=== PATIENT | male | born 1945 | race Caucasian/White ===

== ENCOUNTER 2016-10-18 12:30 | Inpatient (IN) ==
--- NOTE | 2016-10-18 12:41 | Family Practice Progress Note ---
Family Practice - PN: Subj Interval history: pt admitted for Myasthenia Gravis Exacerbation, has h/o hypertension, diabeties, COPD,hyperlipidemia,hypothyroidism, PCP: Outside, brand sales consultant on case: Dr. Chance, neurologist. Patient seen and examined on the fifth floor, Is sitting up in the bed, patient is feeling better than yesterday, ambulating well, his speech has improved, is able to swallow his saliva, n.p.o. is on IV fluids, IV Solu-Medrol, tolerating well No fever, nausea, shortness of breath, chest pain, new weakness noted by the patient, No overnight events reported by the nurse. Exam (Progress Note) - Constitutional Vitals: Vitals from today temperature 97.5, pulse rate 66, blood pressure 139/89, 153/67 , pulse ox ranging from 93% to 98 at room air. Exam: GENERAL APPEARANCE: alert and oriented, pleasant, in no acute distress,elderly male patient,. HEENT: normal . EYES: Drooping bilateral eyelid than yesterday better , extraocular movement intact (EOMI), conjunctiva clear,. ORAL CAVITY: postpharynx no erythema , no cold saliva , the patient can swallow his saliva, . NECK/THYROID: neck supple, full range of motion, no cervical lymphadenopathy, no thyromegaly . HEART: regular rate and rhythm, no murmurs, rubs, gallops . LUNGS: clear to auscultation bilaterally, no wheezes, rales, rhonchi . ABDOMEN: soft, nontender, nondistended, no organomegaly , bowel sounds present . EXTREMITIES: no edema . NEUROLOGIC: alert and oriented, cranial nerves 2-12 grossly intact, gait normal , normal strength, . Results - Labs CBC & BMP: 10/19/16 05:14 10/18/16 13:50 Lab Results: I have reviewed the past 24 hour labs - Impressions Chest x-ray, Impression: COPD with evidence of granulomatous disease. 10 mm nodular density in the right upper lobe which contains equivocal minimal central calcification. CT is recommended for further evaluation. Atelectasis at the lung bases. (Patient is aware of the nodule, patient mentions his PCP follows chest x-ray, previously it was noted to be 1.3 cm) EKG Interpretive Statements SINUS MECHANISM RATE 65 BPM MILD NST WITH MILD LEAD ARTIFACT Assessment and Plan (1) Myasthenia gravis with exacerbation Status: Acute Assessment and plan: On IV Solu-Medrol 125 mg, improving. Follow neurology recommendations, will follow recommendations of speech therapist. 2. Continue IV fluids. 3. Hypertension, stable on IV enalapril, oral meds are held for now. 4. Diabetes, stable on sliding scale. 5. COPD stable continue duo nebs. 6. Hypothyroidism on IV Synthroid. Current Visit: Yes (2) Type 2 diabetes mellitus with unspecified complications Status: Chronic Current Visit: Yes (3) Hypertension, essential Status: Chronic Current Visit: Yes (4) Hypothyroidism, unspecified Status: Acute Current Visit: Yes (5) COPD (chronic obstructive pulmonary disease) Status: Chronic Current Visit: Yes (6) Hyperlipidemia, unspecified Status: Chronic Current Visit: Yes (7) History of cardiac dysrhythmia Status: Chronic Current Visit: Yes (8) GERD without esophagitis Status: Chronic Current Visit: Yes
[2016-10-18] MEDS ORDERED: ACETAMINOPHEN 325 MG TABLET PO PRN (12:58)
[2016-10-18] MEDS ORDERED: ONDANSETRON 4 MG/2 ML VIAL IV PRN (12:58)
--- NOTE | 2016-10-18 13:28 | Family Practice History&Phys ---
Assessment and Plan (1) Myasthenia gravis with exacerbation Status: Acute Assessment and plan: start IV solumedrol 125 mg BId , swallow evaluation, follow neurology recommendations, Labs CBC,CMP, TSH, ordered, 2. NPO, IVF 1/2 NS , 3,. Diabetes, start sliding scale, fingersticks Qac and hs,.hold oral meds, 4. HTN , start IV enalpril , hold oral meds, 5. Hypothyroidism , start IV synthroid 1/2 the home dosage, confirmed by pharmacy, 6.COPD stable, will do duonebs Current Visit: Yes (2) Type 2 diabetes mellitus with unspecified complications Status: Chronic Current Visit: Yes (3) Hypertension, essential Status: Chronic Current Visit: Yes (4) Hypothyroidism, unspecified Status: Acute Current Visit: Yes (5) COPD (chronic obstructive pulmonary disease) Status: Chronic Current Visit: Yes (6) Hyperlipidemia, unspecified Status: Chronic Current Visit: Yes (7) History of cardiac dysrhythmia Status: Chronic Current Visit: Yes (8) GERD without esophagitis Status: Chronic Current Visit: Yes History of Present Illness Chief complaint: severe dysphagia History of present illness: Mr. Iniguez is a 71 year old male pt came to my clinic, send from , neurologist, for hospital admission , for Myasthenia Gravis Exacerbation, PCP at [facility], , accompanied by his , , history obtained from both, has myasthenia gravis since 7 years difficulty swallowing ,even liquids ,getting harder, since yesterday lunch, unable to swallow his saliva, unable to even take meds, was put on prednisone 7.5 mg BID, changed , since 2 weeks, not helping him, last dose taken yesterday a.m. no nausea , vomiting, no fever, speech getting slurry, no chest pain , sob , headaches, dizziness, home blood glu at home 101,last A1c 5.6 at pcp, pt has h/o myasthenia gravis, hypertension, diabeties, COPD,hyperlipidemia, hypothyroidism,. Home Medications Medication Instructions Recorded Confirmed Type Alfuzosin [Uroxatral] 10 mg PO DAILY 10/18/16 10/18/16 History Clopidogrel [Plavix] 75 mg PO DAILY 10/18/16 10/18/16 History Fenofibrate 160 mg PO DAILY 10/18/16 10/18/16 History Fluticasone Propionate [Flonase 1 spray BOTH NARES DAILY 10/18/16 10/18/16 History Allergy Relief] Fluticasone/Salmeterol [Advair Hfa 8 gm IH BID 10/18/16 10/18/16 History 115-21 Mcg Inhaler] Furosemide 20 mg PO DAILY 10/18/16 10/18/16 History Gluc/Radhames-MSM#1/C/Osman/Trent/Bor 2 each PO DAILY 10/18/16 10/18/16 History [Osteo Bi-Flex Caplet] Ibuprofen [Advil] 200 mg PO Q6HR PRN 10/18/16 10/18/16 History Levocetirizine Dihydrochloride 5 mg PO BEDTIME 10/18/16 10/18/16 History Levothyroxine Tab [Synthroid Tab] 200 mcg PO DAILY@0700 10/18/16 10/18/16 History Lisinopril 40 mg PO BID 10/18/16 10/18/16 History Melatonin 3 mg PO BEDTIME 10/18/16 10/18/16 History Montelukast Tab [Singulair Tab] 10 mg PO DAILY 10/18/16 10/18/16 History Multivitamin (Centrum) [Centrum 1 tablet PO DAILY 10/18/16 10/18/16 History Tab] Pantoprazole Tab [Protonix Tab] 40 mg PO DAILY 10/18/16 10/18/16 History Pyridostigmine Brutus 1 tablet PO TID 10/18/16 10/18/16 History Tiotropium Inhalation [Spiriva 18 mcg INH DAILY 10/18/16 10/18/16 History Handihaler] hydroCHLOROthiazide 25 mg PO DAILY 10/18/16 10/18/16 History [Hydrochlorothiazide] metFORMIN [Glucophage] 500 mg PO BID W/MEALS 10/18/16 10/18/16 History predniSONE [Prednisone] 5 mg PO DAILY 10/18/16 10/18/16 History raNITIdine HCl [Ranitidine HCl] 150 mg PO DAILY 10/18/16 10/18/16 History Allergies Allergy/AdvReac Type Severity Reaction Status Date / Time Hydralazine Allergy Verified 10/18/16 13:30 aspirin AdvReac Verified 10/18/16 13:30 - Constitutional Constitutional: Present: as per HPI - EENT Eyes: Present: as per HPI Nose, mouth and throat: Present: as per HPI - Cardiovascular Cardiovascular: Present: as per HPI - Respiratory Respiratory: Present: as per HPI - Gastrointestinal Gastrointestinal: Present: as per HPI - Genitourinary Genitourinary: Present: as per HPI - Musculoskeletal Musculoskeletal: Present: as per HPI - Neurological Neurological: Present: as per HPI - Psychiatric Psychiatric: Present: as per HPI Medical,Surgical,& Family Hx - Medical History Cardio: History of: Hypertension, Cardiovascular Problems Neurology: History of: Neurological Problems (myasthenia gravis) Endocrine: History of: Diabetes Mellitus (NIDDM), Dyslipidemia, Thyroid Disorder (hypothyroidism) Rheumatology: History of;: Myasthenia Gravis Respiratory: History of: COPD Gastrointestinal: History of: GERD Exam - Constitutional Vitals: from clinic. Temp 98, HR 66, RR 18, BP 160/80, Ht 68, Wt 229.4, BMI 34.88, Oxygen sat % 98 Exam: GENERAL APPEARANCE: alert and oriented, pleasant, in no acute distress,elderly male patient,. HEENT: normal . EYES: Drooping eyelid mildly bilaterally, extraocular movement intact (EOMI), conjunctiva clear,. ORAL CAVITY: postpharynx mild erythema , with pooled saliva , uvula not midline, the patient cannot swallow his saliva, . NECK/THYROID: neck supple, full range of motion, no cervical lymphadenopathy, no thyromegaly . HEART: regular rate and rhythm, no murmurs, rubs, gallops . LUNGS: clear to auscultation bilaterally, no wheezes, rales, rhonchi . ABDOMEN: soft, nontender, nondistended, no organomegaly , bowel sounds present . EXTREMITIES: no edema . NEUROLOGIC: alert and oriented, cranial nerves 2-12 grossly intact except eye exam,, gait normal, normal strength, . Results - Labs CBC & BMP: 10/18/16 13:50 10/18/16 13:50 Lab Results: I have reviewed the past 24 hour labs
[2016-10-18] MEDS ORDERED: DEXTROSE 50% 25 GM/50 ML SYRINGE IV PRN (13:35)
[2016-10-18] MEDS ORDERED: GLUCAGON 1 MG VIAL IM PRN (13:35)
[2016-10-18 13:59] LABS: Basophils # 0.1 10*3/uL (0.0-0.2); Basophils % 0.6 % (0.0-0.8); Eosinophils # 0.1 10*3/uL (0.0-0.87); Eosinophils % 1.4 % (0.00-10.9); Hematocrit 41.1 VOL% (42.0-52.0); Hemoglobin 13.4 GM/DL (14.0-18.0); Immature Granulocytes % 0.7 %; Immature Granulocytes Absolute 0.07 #; Lymphocytes # 1.5 10*3/uL (1.4-4.0); Lymphocytes % 15.7 % (21.2-54.2); Mean Corpuscular HGB Conc 32.6 GM/DL (32-36); Mean Corpuscular Hemoglobin 30 PG (27-34); Mean Platelet Volume 9.4 FL (9.6-12.0); Monocytes # 0.9 10*3/uL (0.11-0.8); Monocytes % 8.7 % (1.7-12.7); Neutrophils # 7.1 10*3/uL (1.4-7.4); Neutrophils % 72.9 % (38.7-73.9); Platelet Count 312 T/CUMM (130-400); Red Blood Count 4.42 MC/CUMM (3.8-5.5); Red Cell Distribution Width 14.2 % (9.3-17.3); White Blood Count 9.8 T/CUMM (4-12)
[2016-10-18 14:23] LABS: Albumin 4.3 G/DL (3.4-5.0); Bilirubin,Total 0.9 MG/DL (0.2-1.0); Calcium 9.4 MG/DL (8.5-10.1); Potassium 3.9 MMOL/L (3.5-5.1); Total Protein 7.5 G/DL (6.4-8.3)
[2016-10-18 14:25] LABS: Albumin 4.3 G/DL (3.4-5.0); Bilirubin,Direct 0.3 MG/DL (0.0-0.20); Bilirubin,Indirect 0.8 MG/DL (0.0-1.0); Bilirubin,Total 1.1 MG/DL (0.2-1.0); Total Protein 7.6 G/DL (6.4-8.3)
[2016-10-18] MEDS: ALBUTEROL/IPRATROPIUM 3 ML NEB RESP TX SCH ×3 (14:25→23:38)
[2016-10-18] MEDS: SODIUM CHLORIDE 0.45% 1,000 ML IV SCH ×2 (14:37→21:48)
[2016-10-18 14:38] LABS: Free T4 (Free Thyroxine) 0.99 NG/DL (0.76-1.46); Thyroid Stimulating Hormone 2.65 uIU/ml (0.358-3.74)
[2016-10-18] MEDS: methylPREDNISolone SOD SUC 125 MG/2 ML VIAL IV SCH (14:40)
[2016-10-18] MEDS: ENOXAPARIN 40 MG/0.4 ML SYRINGE SUBCUT SCH (14:40)
[2016-10-18] MEDS: ENALAPRIL 2.5 MG/2 ML VIAL IV SCH ×2 (14:40→20:47)
--- NOTE | 2016-10-18 14:40 | EKG Report ---
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
--- NOTE | 2016-10-18 15:32 | XRay Report ---
XR chest 2V Date: 10/18/2016 1:02 PM History: Dysphagia Comparison: None Technique: PA and lateral chest Findings: The heart is small and compressed by the over expanded lungs. 10 mm nodular density in the right midlung zone which may contain very minimal central calcification. Additional smaller calcified granulomata/nodes are identified. Atelectasis at the lung bases. Unremarkable mediastinum with degenerative changes. Impression: COPD with evidence of granulomatous disease. 10 mm nodular density in the right upper lobe which contains equivocal minimal central calcification. CT is recommended for further evaluation. Atelectasis at the lung bases. PROCEDURE INTERPRETED AT [facility] DEPARTMENT OF RADIOLOGY Final Report Signed by: Dr. Julieta Freed
[2016-10-18] MEDS: INSULIN REGULAR 100 UNIT/ML SUBCUT SCH ×2 (16:29→21:49)
[2016-10-18 18:46] LABS: Apearance,Urine CLOUDY (Clear); Bacteria,Urine Few /HPF (Few); Bilirubin,Urine Negative (Negative); Blood, Urine Negative (Negative); Glucose,Urine (UA) Negative (Negative); Ketones,Urine 5 mg/dL (Negative); Nitrite,Urine Negative (Negative); Protein,Urine Negative; Urine Color Yellow (Yellow); Urine Specific Gravity 1.014 (1.001-1.035); WBC,Urine <1 /HPF (0-6)
[2016-10-18] MEDS: DOCUSATE SODIUM 100 MG CAPSULE PO SCH ×2 (21:47→21:52)
[2016-10-19] MEDS: methylPREDNISolone SOD SUC 125 MG/2 ML VIAL IV SCH ×2 (02:57→14:35)
[2016-10-19] MEDS: ENALAPRIL 2.5 MG/2 ML VIAL IV SCH ×4 (02:59→21:34)
[2016-10-19] MEDS: ALBUTEROL/IPRATROPIUM 3 ML NEB RESP TX SCH ×6 (03:06→22:50)
[2016-10-19 07:02] LABS: Basophils % 0.1 % (0.0-0.8); Hematocrit 40.3 VOL% (42.0-52.0); Hemoglobin 13.2 GM/DL (14.0-18.0); Immature Granulocytes Absolute 0.12 #; Lymphocytes # 0.6 10*3/uL (1.4-4.0); Lymphocytes % 4.9 % (21.2-54.2); Mean Corpuscular HGB Conc 32.8 GM/DL (32-36); Mean Corpuscular Hemoglobin 30 PG (27-34); Mean Corpuscular Volume 91.6 FL (87-102); Mean Platelet Volume 10.1 FL (9.6-12.0); Monocytes # 0.3 10*3/uL (0.11-0.8); Monocytes % 2.3 % (1.7-12.7); Neutrophils # 11.5 10*3/uL (1.4-7.4); Neutrophils % 91.7 % (38.7-73.9); Platelet Count 365 T/CUMM (130-400); Red Cell Distribution Width 13.7 % (9.3-17.3); White Blood Count 12.5 T/CUMM (4-12)
[2016-10-19 07:24] LABS: Band Neutrophils 1 % (0-10); Hypochromasia Slight; Lymphocytes 2 % (20-55); Platelet Estimate Adequate; Segmented Neutrophils 94 % (50-85); Total Cells Counted 100
[2016-10-19 07:32] LABS: Risk Ratio 3.07; VLDL CHOLESTEROL 18.6 MG/DL
[2016-10-19] MEDS: LEVOTHYROXINE 100 MCG VIAL IV SCH (07:40)
[2016-10-19] MEDS: SODIUM CHLORIDE 0.45% 1,000 ML IV SCH ×3 (07:41→21:36)
--- NOTE | 2016-10-19 08:29 | Neurology Consult Note ---
History of Present Illness History of present illness: 71 years old right-handed white gentleman with past medical history significant for myasthenia gravis for last 7-8 years, hypertension, diabetes, COPD, hyperlipidemia, hypothyroidism admitted the hospital with myasthenia gravis exacerbation/decompensation. Patient called me a week or 2 ago that he has been developing some difficulty in swallowing. We bumped his prednisone up at 7.5 twice a day however apparently it did not help. He called me again reporting that all the symptoms has gotten worse including swallowing and he cannot swallow anything. He came to my office and during evaluation I found out that he has significant ptosis bilaterally, marked difficulty with the speech and he could not swallow anything. I recommended hospitalization and IV Solu-Medrol. This morning he seems to be doing better. He seems to think that he can try to swallow now. His lab work looks okay along with UA. Home Medications Medication Instructions Recorded Confirmed Type Alfuzosin [Uroxatral] 10 mg PO DAILY 10/18/16 10/18/16 History Clopidogrel [Plavix] 75 mg PO DAILY 10/18/16 10/18/16 History Fenofibrate 160 mg PO DAILY 10/18/16 10/18/16 History Fluticasone Propionate [Flonase 1 spray BOTH NARES DAILY 10/18/16 10/18/16 History Allergy Relief] Fluticasone/Salmeterol [Advair Hfa 8 gm IH BID 10/18/16 10/18/16 History 115-21 Mcg Inhaler] Furosemide 20 mg PO DAILY 10/18/16 10/18/16 History Gluc/Radhames-MSM#1/C/Osman/Trent/Bor 2 each PO DAILY 10/18/16 10/18/16 History [Osteo Bi-Flex Caplet] Ibuprofen [Advil] 200 mg PO Q6HR PRN 10/18/16 10/18/16 History Levocetirizine Dihydrochloride 5 mg PO BEDTIME 10/18/16 10/18/16 History Levothyroxine Tab [Synthroid Tab] 200 mcg PO DAILY@0700 10/18/16 10/18/16 History Lisinopril 40 mg PO BID 10/18/16 10/18/16 History Melatonin 3 mg PO BEDTIME 10/18/16 10/18/16 History Montelukast Tab [Singulair Tab] 10 mg PO DAILY 10/18/16 10/18/16 History Multivitamin (Centrum) [Centrum 1 tablet PO DAILY 10/18/16 10/18/16 History Tab] Pantoprazole Tab [Protonix Tab] 40 mg PO DAILY 10/18/16 10/18/16 History Pyridostigmine [place] 1 tablet PO TID 10/18/16 10/18/16 History Tiotropium Inhalation [Spiriva 18 mcg INH DAILY 10/18/16 10/18/16 History Handihaler] hydroCHLOROthiazide 25 mg PO DAILY 10/18/16 10/18/16 History [Hydrochlorothiazide] metFORMIN [Glucophage] 500 mg PO BID W/MEALS 10/18/16 10/18/16 History predniSONE [Prednisone] 5 mg PO DAILY 10/18/16 10/18/16 History raNITIdine HCl [Ranitidine HCl] 150 mg PO DAILY 10/18/16 10/18/16 History Allergies Allergy/AdvReac Type Severity Reaction Status Date / Time Hydralazine Allergy Verified 10/18/16 13:30 aspirin AdvReac Verified 10/18/16 13:30 12 point system: reviewed and no additional remarkable complaints except as stated Medical,Surgical,& Family Hx - Medical History Cardio: History of: Hypertension, Cardiovascular Problems Psychological: No history of: Anxiety Disorders, ADHD, Behavior Problems, Bipolar Disorder, Depression, Previous Suicide Attempt, Psychiatric/Substance Abuse Tx, Schizophrenia, Violent Behavior, Psychiatric Problems Neurology: History of: Neurological Problems (myasthenia gravis) Endocrine: History of: Diabetes Mellitus (NIDDM), Dyslipidemia, Thyroid Disorder (hypothyroidism) Rheumatology: History of;: Myasthenia Gravis Respiratory: History of: COPD Gastrointestinal: History of: GERD - Family History Family History: Reports;: Family Cancer, Family Diabetes, Family Heart Disease - Social History Smoking Status: Unknown if ever smoked Frequency of Alcohol Use: None Type of Drug Use: None Exam - Constitutional Vitals: Period Temp Pulse Resp BP Sys/Gonzales Pulse Ox Last 24 Hr 97.5 F-98.4 F 60-82 18-22 139-160/67-89 90-99 Exam: GENERAL: Patient is in no acute distress. NECK: Neck is supple. There is no JVD. No carotid bruits present. No thyroid masses. CVS: First and second heart sounds are normal. There is no S3 present. Regular rate and rhythm. RESPIRATORY: Lungs are clear to auscultation without any rales or rhonchi. ABDOMEN: Soft and non-tender. Bowel sounds are present. There is no hepatosplenomegaly. EXT: There is no palpable edema. Peripheral pulses are present. Skin: No rashes Central Nervous system: General: Alert, awake and Oriented x 3 Speech: Fluent Comprehension: Intact and normal Facial expressions: Normal Cranial Nerves: CN1/Olfactory: Normal CN II/ Optic: Normal, Visual Bynum unreliable CN III, and : DANIEL & EOMI, bilateral ptosis CN V: Normal & intact CN VII: face is symmetric CNVIII: Normal CN XI/X/XI/XII: Intact and Normal Motor: Bulk and Tone is normal. Strength in the right 4/5 Strength in the left 4/5 Sensory: Grossly intact for all the modalities of PP, LT and temp sense Reflexes: 1+ and symmetrical Cerebellar function: Normal finger to nose and heel to burger testing. Toes: Equivocal Gait: Able to get up and walk Results - Labs CBC & BMP: 10/19/16 05:14 10/18/16 13:50 Assessment and Plan (1) Myasthenia gravis with exacerbation Status: Acute Assessment and plan: Continue IV Solu-Medrol 125 mg twice daily. Continue IV fluid Reevaluate with speech We will put him back on prednisone once he is able to swallow If he fails swallowing today then will put NG tube for feeding. Current Visit: Yes (2) Type 2 diabetes mellitus with unspecified complications Status: Chronic Assessment and plan: Continue Accu-Cheks with sliding scale coverage Current Visit: Yes (3) Hypertension, essential Status: Chronic Assessment and plan: Continue current medications. Check vitals per routine. Current Visit: Yes
[2016-10-19] MEDS: INSULIN REGULAR 100 UNIT/ML SUBCUT SCH ×4 (08:36→21:40)
[2016-10-19] MEDS ORDERED: PANTOPRAZOLE 40 MG TABLET PO SCH (09:00)
[2016-10-19] MEDS: DOCUSATE SODIUM 100 MG CAPSULE PO SCH ×2 (09:52→21:36)
[2016-10-19] MEDS: ENOXAPARIN 40 MG/0.4 ML SYRINGE SUBCUT SCH (14:35)
[2016-10-20] MEDS: methylPREDNISolone SOD SUC 125 MG/2 ML VIAL IV SCH ×3 (02:03→18:03)
[2016-10-20] MEDS: ENALAPRIL 2.5 MG/2 ML VIAL IV SCH ×4 (02:03→20:16)
[2016-10-20] MEDS: ALBUTEROL/IPRATROPIUM 3 ML NEB RESP TX SCH ×5 (02:30→20:16)
[2016-10-20] MEDS: LEVOTHYROXINE 100 MCG VIAL IV SCH (06:37)
[2016-10-20] MEDS: SODIUM CHLORIDE 0.45% 1,000 ML IV SCH ×4 (06:37→20:15)
--- NOTE | 2016-10-20 08:29 | Neurology Progress Note ---
Neurology - PN : Subjective Interval history: Patient reported that he has been having some trouble breathing. He did fairly well yesterday but today he does not look too good. He is quite weak, has difficulty in speaking and marked difficulty in swallowing. He used to take some diuretics at home and we will resume it. Exam (Progress Note) - Constitutional Vitals: Period Temp Pulse Resp BP Sys/Gonzales Pulse Ox Last 24 Hr 97.3 F-98.0 F 61-80 18-21 141-190/70-92 90-98 Exam: GENERAL: Patient is in no acute distress. NECK: Neck is supple. There is no JVD. No carotid bruits present. No thyroid masses. CVS: First and second heart sounds are normal. There is no S3 present. Regular rate and rhythm. RESPIRATORY: Lungs are clear to auscultation without any rales or rhonchi. ABDOMEN: Soft and non-tender. Bowel sounds are present. There is no hepatosplenomegaly. EXT: There is no palpable edema. Peripheral pulses are present. Skin: No rashes Central Nervous system: General: Alert, awake and Oriented x 3 Speech: Fluent but some dysarthria Comprehension: Intact and normal Facial expressions: Normal Cranial Nerves: CN1/Olfactory: Normal CN II/ Optic: Normal, Visual Bynum unreliable CN III, and : DANIEL & EOMI, bilateral ptosis CN V: Normal & intact CN VII: face is symmetric CNVIII: Normal CN XI/X/XI/XII: Intact and Normal Motor: Bulk and Tone is normal. Strength in the right 4/5 Strength in the left 4/5 Sensory: Grossly intact for all the modalities of PP, LT and temp sense Reflexes: 1+ and symmetrical Cerebellar function: Normal finger to nose and heel to burger testing. Toes: Equivocal Gait: Able to get up and walk Results - Labs CBC & BMP: 10/19/16 05:14 10/18/16 13:50 Assessment and Plan (1) Myasthenia gravis with exacerbation Status: Acute Assessment and plan: Change IV Solu-Medrol to 62.5 mg every 8 IVIG 40 g daily for 5 days Consult pulmonary 02 via nasal cannula 2 L/min Lasix 40 mg p.o. daily Insert feeding tube and start feeding Hold off to oral feedings at this time Current Visit: Yes (2) Type 2 diabetes mellitus with unspecified complications Status: Chronic Assessment and plan: Continue Accu-Cheks with sliding scale coverage Current Visit: Yes (3) Hypertension, essential Status: Chronic Assessment and plan: Continue current medications. Check vitals per routine. Current Visit: Yes
[2016-10-20] MEDS: INSULIN REGULAR 100 UNIT/ML SUBCUT SCH ×4 (08:48→20:18)
--- NOTE | 2016-10-20 09:02 | Family Practice Progress Note ---
Family Practice - PN: Subj Interval history: pt admitted for Myasthenia Gravis Exacerbation, has h/o hypertension, diabeties, COPD,hyperlipidemia,hypothyroidism, PCP: Outside, [employer] consultant on case: Dr. Chance, neurologist. Patient seen and examined on the fifth floor, is still NPO on IVF , on IV Solumedrol, IVIG to be added X 5 days starting today , Has SOB since yesterday PM , restart lasix IV today. No fever, nausea,chest pain, new weakness noted by the patient, Pt is going for chest x ray now, Exam (Progress Note) - Constitutional Vitals: Period Temp Pulse Resp BP Sys/Gonzales Pulse Ox Last 24 Hr 97.3 F-98.0 F 61-80 18-21 141-190/70-92 90-98 Exam: GENERAL APPEARANCE: alert and oriented, pleasant, in no acute distress,elderly male patient,. HEENT: normal . EYES: Drooping bilateral eyelid, extraocular movement intact (EOMI), conjunctiva clear,. ORAL CAVITY: the patient can swallow his saliva, NECK/THYROID: neck supple, full range of motion, no cervical lymphadenopathy, no thyromegaly . HEART: regular rate and rhythm, no murmurs, rubs, gallops . LUNGS: clear to auscultation bilaterally, no wheezes, rales, rhonchi . ABDOMEN: soft, nontender, nondistended, no organomegaly , bowel sounds present . EXTREMITIES:1+ pedal pitting edema bilateral lower extremities, no red's sign . NEUROLOGIC: alert and oriented, cranial nerves 2-12 grossly intact, gait normal , normal strength, speech mildly slurred today. Results - Labs CBC & BMP: 10/19/16 05:14 10/18/16 13:50 Lab Results: I have reviewed the past 24 hour labs Assessment and Plan (1) Myasthenia gravis with exacerbation Status: Acute Assessment and plan: On IV Solu-Medrol adjusted, IVIG day 1 today, Follow neurology recommendations, will follow recommendations of speech therapist. 2.Shortness of breath, chest x-ray now,will also get EKG, BNP, d-dimer stat. Pulmonology consult today. 3. N.p.o., continue IV fluids. Will decrease IV 1/2 ns 100 cc/h, IV Lasix added 4. Hypertension, stable on IV enalapril, oral meds are held for now. 5. Diabetes, stable on sliding scale. 6. COPD ,continue duo nebs. 7. Hypothyroidism on IV Synthroid. Current Visit: Yes (2) Type 2 diabetes mellitus with unspecified complications Status: Chronic Current Visit: Yes (3) Hypertension, essential Status: Chronic Current Visit: Yes (4) Hypothyroidism, unspecified Status: Acute Current Visit: Yes (5) COPD (chronic obstructive pulmonary disease) Status: Chronic Current Visit: Yes (6) Hyperlipidemia, unspecified Status: Chronic Current Visit: Yes (7) History of cardiac dysrhythmia Status: Chronic Current Visit: Yes (8) GERD without esophagitis Status: Chronic Current Visit: Yes
--- NOTE | 2016-10-20 09:21 | XRay Report ---
XR chest 2V Date: 10/20/2016 8:30 AM History: Pleural effusion Comparison: 10/18/2016 Technique: PA and lateral chest Findings: The heart is small and compressed by the over expanded lungs. Persistent atelectasis at the lung bases with very small pleural effusions. 2 mm indeterminate nodular density in the right upper lobe. Stable mediastinum with degenerative changes. Impression: COPD with evidence of prior granulomatous disease. Residual atelectasis/infiltration at the lung bases with very small pleural effusions. 10 mm indeterminate nodular density in the right upper lobe. CT is recommended for further evaluation. PROCEDURE INTERPRETED AT [facility] DEPARTMENT OF RADIOLOGY Final Report Signed by: Dr. Julieta Freed
--- NOTE | 2016-10-20 09:54 | EKG Report ---
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
[2016-10-20] MEDS: FUROSEMIDE 40 MG/4 ML VIAL IV SCH (10:00)
[2016-10-20] MEDS: DOCUSATE SODIUM 100 MG CAPSULE PO SCH ×2 (10:02→20:18)
[2016-10-20 10:03] LABS: Troponin I Only 0.156 NG/ML (0.00-0.045)
--- NOTE | 2016-10-20 11:05 | Pulmonology Consult Note ---
History of Present Illness Chief complaint: S OB. COPD. Myasthenia gravis History of present illness: Mr. Iniguez is a 71 year old white male with myasthenia gravis and shortness of breath. I been asked to see him in pulmonary consultation. This is a 71-year- old white male. He has shortness of breath especially when he sits in bed and lays back. He has received a lot of fluid. He has been on Lasix at home and that it been withheld until this morning when he received 40 mg of Lasix. He told me he had already been to the bathroom 3 times and he feels like he can take a better deep of breath. He has a chest x-ray today and I do not see any overt congestive heart failure. His natruretic peptide is 77. This patient is under the care of a street railway line installer in [place]. He says he has COPD. He quit smoking in 1990. He does have gastroesophageal reflux disease and never could get a clear-cut history of whether not he has symptoms of aspiration. Patient denies a cough he has had no sputum production and he denies hemoptysis. He says he has not heard himself wheeze. O2 sats have been 98% on room air. Supplemental oxygen does make the patient feels a little better. Patient was in originally admitted for exacerbation of myasthenia gravis. He had been unable to eat or swallow fluids. He had become dehydrated. He is markedly improved now. The remainder the review of systems is negative. Allergies. See below. Hydralazine. Past Home medicines. See below Present medicines. See below Past history. Myasthenia gravis. High blood pressure. Diabetes mellitus, type II. COPD which is followed by street railway line installer in [facility]. Hyperlipidemia. Hypothyroidism. History of gastroesophageal reflux with esophageal. High blood pressure. History of cardiac the rhythm appears Social history. Smoked until 1990. Family history. Diabetes mellitus. Heart disease. Unknown type of cancer. Chest x-rays done 10/18/2016 and 10/20/2016 showed no clear-cut evidence of congestive heart failure. I do not see any infiltrates. There are a few interstitial scars scars in each base which might be due to past history of aspiration of gastric contents. EKG. Regular sinus rhythm. Normal axis. Nonspecific STs and T's. This appears to be a normal tracing. Lab. White count was 12,500 with 91.76. H&H 13.2/40.3 with normal indices. Platelets are 365,000. D-dimer is less than or equal to 5.0. Glucoses are normal. CPK is 372. Protein albumin and globulin are normal. Urine shows no evidence of infection. Thyroid function tests are normal. Physical exam. Vital signs. See below. Afebrile Psychiatric. Oriented 3. Good historian. General. Standing up in his room. Comfortable and in no apparent distress. Neurologic. Cranial nerves are intact. Speech is poor. Patient complains of some difficulty swallowing but he says he has improved. Able to walk. Moves all 4 extremities. . Face. Symmetrical. No edema of the lips or tongue. Neck. Symmetrical. No masses. Thyroid was not palpated Lymphatics. No submandibular cervical supraclavicular or epitrochlear adenopathy. Chest. No wheezes. Expiration appears to be close to normal. No congestion and no cough. Heart. Regular. No gallop Abdomen. Nondistended. Positive bowel sounds Lower extremities. No edema no evidence of deep venous thrombophlebitis The remainder the physical exam is noncontributory. Impression. #1. History of COPD. 2. Gastroesophageal reflux disease with a history of esophagitis #3 Positional shortness of breath which is improved with diuresis. BNP is normal and chest x-ray shows no evidence of congestive heart failure. Hopefully this will resolve his shortness of breath. Watch for microaspiration as a potential exacerbating factor. 4. Recent exacerbation of myasthenia gravis 5. Diabetes mellitus under good control 6. recent dehydration secondary to inability to swallow. Apparently resolved 7. See past history Plan. 1. I agree with nebulizers. 2. I reviewed the patient's other medicines and I am in total agreement with these have made no changes. 3. We will check a sputum for Gram stain culture and sensitivity. 4. We will get a follow-up chest x-ray on Sunday and Sunday. Home Medications Medication Instructions Recorded Confirmed Type Alfuzosin [Uroxatral] 10 mg PO DAILY 10/18/16 10/18/16 History Clopidogrel [Plavix] 75 mg PO DAILY 10/18/16 10/18/16 History Fenofibrate 160 mg PO DAILY 10/18/16 10/18/16 History Fluticasone Propionate [Flonase 1 spray BOTH NARES DAILY 10/18/16 10/18/16 History Allergy Relief] Fluticasone/Salmeterol [Advair Hfa 8 gm IH BID 10/18/16 10/18/16 History 115-21 Mcg Inhaler] Furosemide 20 mg PO DAILY 10/18/16 10/18/16 History Gluc/Radhames-MSM#1/C/Osman/Trent/Bor 2 each PO DAILY 10/18/16 10/18/16 History [Osteo Bi-Flex Caplet] Ibuprofen [Advil] 200 mg PO Q6HR PRN 10/18/16 10/18/16 History Levocetirizine Dihydrochloride 5 mg PO BEDTIME 10/18/16 10/18/16 History Levothyroxine Tab [Synthroid Tab] 200 mcg PO DAILY@0700 10/18/16 10/18/16 History Lisinopril 40 mg PO BID 10/18/16 10/18/16 History Melatonin 3 mg PO BEDTIME 10/18/16 10/18/16 History Montelukast Tab [Singulair Tab] 10 mg PO DAILY 10/18/16 10/18/16 History Multivitamin (Centrum) [Centrum 1 tablet PO DAILY 10/18/16 10/18/16 History Tab] Pantoprazole Tab [Protonix Tab] 40 mg PO DAILY 10/18/16 10/18/16 History Pyridostigmine [place] 1 tablet PO TID 10/18/16 10/18/16 History Tiotropium Inhalation [Spiriva 18 mcg INH DAILY 10/18/16 10/18/16 History Handihaler] hydroCHLOROthiazide 25 mg PO DAILY 10/18/16 10/18/16 History [Hydrochlorothiazide] metFORMIN [Glucophage] 500 mg PO BID W/MEALS 10/18/16 10/18/16 History predniSONE [Prednisone] 5 mg PO DAILY 10/18/16 10/18/16 History raNITIdine HCl [Ranitidine HCl] 150 mg PO DAILY 10/18/16 10/18/16 History Allergies Allergy/AdvReac Type Severity Reaction Status Date / Time Hydralazine Allergy Verified 10/18/16 13:30 aspirin AdvReac Verified 10/18/16 13:30 Exam (Pulmonay) H&P - Constitutional Vitals: Period Temp Pulse Resp BP Sys/Gonzales Pulse Ox Last 24 Hr 97.3 F-98.0 F 61-80 18-21 141-190/70-92 90-98 Medical,Surgical,& Family Hx - Medical History Cardio: History of: Hypertension, Cardiovascular Problems Psychological: No history of: Anxiety Disorders, ADHD, Behavior Problems, Bipolar Disorder, Depression, Previous Suicide Attempt, Psychiatric/Substance Abuse Tx, Schizophrenia, Violent Behavior, Psychiatric Problems Neurology: History of: Neurological Problems (myasthenia gravis) Endocrine: History of: Diabetes Mellitus (NIDDM), Dyslipidemia, Thyroid Disorder (hypothyroidism) Rheumatology: History of;: Myasthenia Gravis Respiratory: History of: COPD Gastrointestinal: History of: GERD - Family History Family History: Reports;: Family Cancer, Family Diabetes, Family Heart Disease - Social History Smoking Status: Unknown if ever smoked Frequency of Alcohol Use: None Type of Drug Use: None Results - Labs CBC & BMP: 10/19/16 05:14 10/18/16 13:50
[2016-10-20] MEDS: IMMUNE GLOBULIN 10% 40 GM in PREMIX 1 EACH IV SCH (11:30)
[2016-10-20] MEDS: ENOXAPARIN 40 MG/0.4 ML SYRINGE SUBCUT SCH (13:36)
--- NOTE | 2016-10-20 17:43 | XRay Report ---
XR chest 1V portable Indication: Feeding tube placement. Chest one view: Compromise view the chest and abdomen shows Dobbhoff feeding tube extending into the lower esophagus. It does not cross the diaphragm. Impression: Dobbhoff feeding tube in the distal esophagus. PROCEDURE INTERPRETED AT [facility] DEPARTMENT OF RADIOLOGY Final Report Signed by: Derrick Bar M.D.
--- NOTE | 2016-10-20 18:18 | XRay Report ---
XR chest 1V portable Indication: Feeding tube. Chest one view: Compromise view the chest and abdomen shows Dobbhoff feeding tube now extending well into the stomach. Impression: Appropriate placement of Dobbhoff feeding tube. PROCEDURE INTERPRETED AT [facility] DEPARTMENT OF RADIOLOGY Final Report Signed by: Derrick Bar M.D.
[2016-10-21] MEDS: ALBUTEROL/IPRATROPIUM 3 ML NEB RESP TX SCH ×6 (00:23→19:46)
[2016-10-21] MEDS: methylPREDNISolone SOD SUC 125 MG/2 ML VIAL IV SCH ×3 (02:06→18:05)
[2016-10-21] MEDS: ENALAPRIL 2.5 MG/2 ML VIAL IV SCH ×4 (02:06→20:47)
[2016-10-21] MEDS: SODIUM CHLORIDE 0.45% 1,000 ML IV SCH ×2 (02:06→13:34)
[2016-10-21 05:53] LABS: Calcium 9.8 MG/DL (8.5-10.1); Magnesium 2.7 MG/DL (1.8-2.4); Osmolality,Calculated 283.5 MOS/KG (273-304); Phosphorous 3.8 MG/DL (2.5-4.9); Potassium 4.1 MMOL/L (3.5-5.1); Prealbumin 44.4 MG/DL (20-40)
[2016-10-21] MEDS: LEVOTHYROXINE 100 MCG VIAL IV SCH (06:12)
--- NOTE | 2016-10-21 07:47 | Family Practice Progress Note ---
Family Practice - PN: Subj Interval history: Patient states she is doing fairly well this morning and he is certainly annoyed by his feeding tube. He wanted know when he can start fluids. I told him I want him certainly to have better control of his secretions before we start status we do not want him to get aspiration. He thinks he is getting a little stronger. Exam (Progress Note) - Constitutional Vitals: Period Temp Pulse Resp BP Sys/Gonzales Pulse Ox Last 24 Hr 97.1 F-98.4 F 65-94 16-20 144-190/77-91 94-99 Exam: Objective a well-developed gentleman is awake alert and able give good history. He has a Keofeed tube in place. Cardiovascular: Heart rates regular without murmurs Respiratory: The lungs clear to auscultation bilaterally. Abdomen: Abdomen soft and nontender to palp patient. Neuro: Patient has symmetrical cranial nerves and has no ptosis. He is diffusely weak. Results - Labs CBC & BMP: 10/19/16 05:14 10/21/16 04:17 Lab Results: I have reviewed the past 24 hour labs Assessment and Plan (1) Myasthenia gravis with exacerbation Status: Acute Assessment and plan: 10/21/2016: Patient is receiving IV immunoglobulin. Current Visit: Yes
[2016-10-21] MEDS: INSULIN REGULAR 100 UNIT/ML SUBCUT SCH ×4 (09:52→21:15)
[2016-10-21] MEDS: FUROSEMIDE 40 MG/4 ML VIAL IV SCH (09:52)
[2016-10-21] MEDS: IMMUNE GLOBULIN 10% 40 GM in PREMIX 1 EACH IV SCH (09:54)
--- NOTE | 2016-10-21 09:56 | XRay Report ---
XR chest 2V Indication: Shortness of breath. Chest 2 views: Since yesterday, normal heart size and mediastinal contour and right midlung pulmonary nodule are unchanged. Continued blunting of the costophrenic sulci from scarring is again noted as well. No new infiltrates. Impression: No change from yesterday. PROCEDURE INTERPRETED AT [facility] DEPARTMENT OF RADIOLOGY Final Report Signed by: Derrick Bar M.D.
[2016-10-21] MEDS: DOCUSATE SODIUM 100 MG CAPSULE PO SCH ×2 (11:44→20:46)
--- NOTE | 2016-10-21 13:08 | Neurology Progress Note ---
Neurology - PN : Subjective Interval history: Mr. Iniguez seems to be doing much better. He still has some dysarthric speech however facial weakness has improved significantly. He is also able to swallow some but we are trying to use feeding tube as much as possible at this time. Appreciate all the consultants help. He is breathing much better now since he is getting Lasix. Exam (Progress Note) - Constitutional Vitals: Period Temp Pulse Resp BP Sys/Gonzales Pulse Ox Last 24 Hr 97.1 F-98.2 F 67-94 16-20 144-193/77-93 93-99 Exam: GENERAL: Patient is in no acute distress. NECK: Neck is supple. There is no JVD. No carotid bruits present. No thyroid masses. CVS: First and second heart sounds are normal. There is no S3 present. Regular rate and rhythm. RESPIRATORY: Lungs are clear to auscultation without any rales or rhonchi. ABDOMEN: Soft and non-tender. Bowel sounds are present. There is no hepatosplenomegaly. EXT: There is no palpable edema. Peripheral pulses are present. Skin: No rashes Central Nervous system: General: Alert, awake and Oriented x 3 Speech: Fluent but some dysarthria Comprehension: Intact and normal Facial expressions: Normal Cranial Nerves: CN1/Olfactory: Normal CN II/ Optic: Normal, Visual Bynum unreliable CN III, and : DANIEL & EOMI, bilateral ptosis CN V: Normal & intact CN VII: face is symmetric CNVIII: Normal CN XI/X/XI/XII: Intact and Normal Motor: Bulk and Tone is normal. Strength in the right 4/5 Strength in the left 4/5 Sensory: Grossly intact for all the modalities of PP, LT and temp sense Reflexes: 1+ and symmetrical Cerebellar function: Normal finger to nose and heel to burger testing. Toes: Equivocal Gait: Able to get up and walk Results - Labs CBC & BMP: 10/19/16 05:14 10/21/16 04:17 Assessment and Plan (1) Myasthenia gravis with exacerbation Status: Acute Assessment and plan: Continue IV Solu-Medrol to 62.5 mg every 8 Continue IVIG 40 g daily for 5 days Continue 02 via nasal cannula 2 L/min Continue to hold off to oral feedings at this time Current Visit: Yes (2) Type 2 diabetes mellitus with unspecified complications Status: Chronic Assessment and plan: Continue Accu-Cheks with sliding scale coverage Current Visit: Yes (3) Hypertension, essential Status: Chronic Assessment and plan: Continue current medications. Check vitals per routine. Current Visit: Yes
[2016-10-21] MEDS: ENOXAPARIN 40 MG/0.4 ML SYRINGE SUBCUT SCH (15:11)
[2016-10-22] MEDS: ALBUTEROL/IPRATROPIUM 3 ML NEB RESP TX SCH ×7 (00:02→23:48)
[2016-10-22] MEDS: methylPREDNISolone SOD SUC 125 MG/2 ML VIAL IV SCH ×3 (01:17→18:00)
[2016-10-22] MEDS: ENALAPRIL 2.5 MG/2 ML VIAL IV SCH ×4 (01:18→20:32)
[2016-10-22] MEDS: LEVOTHYROXINE 100 MCG VIAL IV SCH (06:03)
--- NOTE | 2016-10-22 07:28 | Family Practice Progress Note ---
Family Practice - PN: Subj Interval history: Patient states he is feeling much better this morning, when I entered the room he sat up in bed quickly and obviously is feeling stronger. He states he is definite have something to with his mouth and I told him we could probably do some ice chips. He was agreeable that but I cautioned him to stop if he has any strangling. Exam (Progress Note) - Constitutional Vitals: Period Temp Pulse Resp BP Sys/Gonzales Pulse Ox Last 24 Hr 97.7 F-98.9 F 65-83 16-20 145-193/75-97 91-99 Exam: Objective a well-developed gentleman is awake alert and able give good history. He is much more animated this morning than yesterday. Cardiovascular: Heart rates regular without murmurs Respiratory: The lungs clear to auscultation bilaterally. Abdomen: Abdomen soft and nontender to palp patient. Neuro: Patient has symmetrical cranial nerves and has no ptosis. He is diffusely weak. Results - Labs CBC & BMP: 10/19/16 05:14 10/21/16 04:17 Lab Results: I have reviewed the past 24 hour labs Assessment and Plan (1) Myasthenia gravis with exacerbation Status: Acute Assessment and plan: 10/21/2016: Patient is receiving IV immunoglobulin. 10/22/2016: Patient is markedly improved clinically. Current Visit: Yes
[2016-10-22] MEDS: INSULIN REGULAR 100 UNIT/ML SUBCUT SCH ×4 (09:05→20:32)
[2016-10-22] MEDS: DOCUSATE SODIUM 100 MG CAPSULE PO SCH ×2 (09:06→20:33)
[2016-10-22] MEDS: FUROSEMIDE 40 MG/4 ML VIAL IV SCH (09:06)
--- NOTE | 2016-10-22 10:42 | Pulmonology Progress Note ---
Pulmonary - PN: Subj Interval history: Patient admitted for mysthenia flair, doing better on IVIG. Denies any dyspnea today. Exam (Progress Note) - Constitutional Vitals: Period Temp Pulse Resp BP Sys/Gonzales Pulse Ox Last 24 Hr 97.8 F-98.9 F 65-83 16-20 145-193/75-97 91-99 General appearance: normal weight, no acute distress - Head Head exam: Present: normal inspection - Respiratory Respiratory exam: Present: clear to auscultation bilaterally - Cardiovascular Cardiovascular exam: Present: regular rate and rhythm Results - Labs CBC & BMP: 10/19/16 05:14 10/21/16 04:17 Lab Results: I have reviewed the past 24 hour labs Assessment and Plan (1) Myasthenia gravis with exacerbation Status: Acute Assessment and plan: Patient being treated with IVIG, has 3 more treatments. Breathing appears improved clinically. If there is any concern, should have RT perform bedside VC/ MIP/MEP (VC should be at least 30ml/kg of IBW). Dr Catherine to resume care tomorrow. Continue other current treatments Current Visit: Yes
[2016-10-22] MEDS: IMMUNE GLOBULIN 10% 40 GM in PREMIX 1 EACH IV SCH (11:08)
--- NOTE | 2016-10-22 11:55 | Neurology Progress Note ---
Neurology - PN : Subjective Interval history: Patient seems to be improving every day. Swallowing is better. But he is not taking anything by mouth yet. He is a still on feeding tube. Speech is much better Exam (Progress Note) - Constitutional Vitals: Period Temp Pulse Resp BP Sys/Gonzales Pulse Ox Last 24 Hr 97.4 F-98.9 F 65-83 16-20 145-193/75-102 91-99 Exam: GENERAL: Patient is in no acute distress. NECK: Neck is supple. There is no JVD. No carotid bruits present. No thyroid masses. CVS: First and second heart sounds are normal. There is no S3 present. Regular rate and rhythm. RESPIRATORY: Lungs are clear to auscultation without any rales or rhonchi. ABDOMEN: Soft and non-tender. Bowel sounds are present. There is no hepatosplenomegaly. EXT: There is no palpable edema. Peripheral pulses are present. Skin: No rashes Central Nervous system: General: Alert, awake and Oriented x 3 Speech: Fluent but some dysarthria Comprehension: Intact and normal Facial expressions: Normal Cranial Nerves: CN1/Olfactory: Normal CN II/ Optic: Normal, Visual Bynum unreliable CN III, and : DANIEL & EOMI, bilateral ptosis CN V: Normal & intact CN VII: face is symmetric CNVIII: Normal CN XI/X/XI/XII: Intact and Normal Motor: Bulk and Tone is normal. Strength in the right 4/5 Strength in the left 4/5 Sensory: Grossly intact for all the modalities of PP, LT and temp sense Reflexes: 1+ and symmetrical Cerebellar function: Normal finger to nose and heel to burger testing. Toes: Equivocal Gait: Able to get up and walk Results - Labs CBC & BMP: 10/19/16 05:14 10/21/16 04:17 Assessment and Plan (1) Myasthenia gravis with exacerbation Status: Acute Assessment and plan: Continue IV Solu-Medrol to 62.5 mg every 8 Continue IVIG 40 g daily for 5 days Continue 02 via nasal cannula 2 L/min Continue to hold off to oral feedings at this time Patient is improving every day Current Visit: Yes (2) Type 2 diabetes mellitus with unspecified complications Status: Chronic Assessment and plan: Continue Accu-Cheks with sliding scale coverage Current Visit: Yes (3) Hypertension, essential Status: Chronic Assessment and plan: Continue current medications. Check vitals per routine. Current Visit: Yes
[2016-10-22] MEDS: ENOXAPARIN 40 MG/0.4 ML SYRINGE SUBCUT SCH (15:42)
[2016-10-23] MEDS: methylPREDNISolone SOD SUC 125 MG/2 ML VIAL IV SCH ×3 (02:15→19:03)
[2016-10-23] MEDS: ENALAPRIL 2.5 MG/2 ML VIAL IV SCH ×4 (02:15→13:39)
[2016-10-23] MEDS: ALBUTEROL/IPRATROPIUM 3 ML NEB RESP TX SCH ×6 (03:00→23:58)
[2016-10-23] MEDS: LEVOTHYROXINE 100 MCG VIAL IV SCH (06:12)
[2016-10-23 06:53] LABS: Calcium 9.9 MG/DL (8.5-10.1); Magnesium 2.5 MG/DL (1.8-2.4); Osmolality,Calculated 289.5 MOS/KG (273-304); Phosphorous 2.6 MG/DL (2.5-4.9); Potassium 4.2 MMOL/L (3.5-5.1)
--- NOTE | 2016-10-23 07:47 | XRay Report ---
2 view chest. Indication: Shortness of breath. Comparison: October 21, 2016. The heart is normal in size. The lung craft are hyperexpanded. The Keofeed tube has been retracted and is now just beyond the GE junction. You may wish to advance at several centimeters. Nodular density in the right midlung field remain stable. Impression: 1. Stable appearance of the lung craft, with the pulmonary nodule in the right midlung field which needs further evaluation with CT. 2. The Keofeed tube has been retracted. It needs to be advanced several centimeters. PROCEDURE INTERPRETED AT [facility] DEPARTMENT OF RADIOLOGY Final Report Signed by: Dr. Nithya Frias
--- NOTE | 2016-10-23 09:10 | Family Practice Progress Note ---
Family Practice - PN: Subj Interval history: pt admitted for Myasthenia Gravis Exacerbation, improving has h/o hypertension, diabeties, COPD,hyperlipidemia,hypothyroidism, PCP: Outside, consultants on case: Dr. Mcdowell, neurologist, sewing machinist. Patient seen and examined on the fifth floor, Is ambulating well. wearing O2, Patient is having breakfast this AM<, speech, swallow better than the last week. Is also on feeding tube. No fever, nausea,chest pain,SOB, new weakness noted by the patient, No overnight events reported by the nurse. Exam (Progress Note) - Constitutional Vitals: Period Temp Pulse Resp BP Sys/Gonzales Pulse Ox Last 24 Hr 97.3 F-98.4 F 54-87 16-20 154-166/75-92 92-99 Exam: GENERAL APPEARANCE: alert and oriented, pleasant, in no acute distress,elderly male patient, sitting at the side of the bed, is having breakfast this a.m. On 2 L O2 nasal cannula. HEENT: normal . EYES: Mildly Drooping bilateral eyelid, extraocular movement intact (EOMI), conjunctiva clear,. NECK/THYROID: neck supple, full range of motion, \, no thyromegaly . HEART: regular rate and rhythm, no murmurs, rubs, gallops . LUNGS: clear to auscultation bilaterally, no wheezes, rales, rhonchi . ABDOMEN: soft, nontender, nondistended, no organomegaly , bowel sounds present . EXTREMITIES: no pedal edema NEUROLOGIC: alert and oriented, cranial nerves 2-12 grossly intact, gait normal , normal strength, speech clear today. Results - Labs CBC & BMP: 10/19/16 05:14 10/23/16 06:02 Lab Results: I have reviewed the past 24 hour labs - Impressions Chest x-ray from 10/23/2016, Impression: 1. Stable appearance of the lung craft, with the pulmonary nodule in the right midlung field which needs further evaluation with CT. 2. The Keofeed tube has been retracted. It needs to be advanced several centimeters. Urine culture from 10/18/2016, no growth for 48 hours, sputum culture from 10/21/2016, no growth for 48 hours. Assessment and Plan (1) Myasthenia gravis with exacerbation Status: Acute Assessment and plan: Improving On IV Solu-Medrol IVIG day 4 today, Follow neurology recommendations, will follow recommendations of speech therapist. 2. On tube feeding, will try to switch his IV meds to oral meds , if its ok with the consultants, 3. Continue soft diet, advance as tolerating , As per speech/swallow therapist recommendation 4. Hypertension, stable , continue antihypertensives. 5. Diabetes, stable on sliding scale. 6. COPD ,continue duo nebs, oxygen. 7. Hypothyroidism on IV Synthroid. Current Visit: Yes (2) Type 2 diabetes mellitus with unspecified complications Status: Chronic Current Visit: Yes (3) Hypertension, essential Status: Chronic Current Visit: Yes (4) Hypothyroidism, unspecified Status: Chronic Current Visit: Yes (5) COPD (chronic obstructive pulmonary disease) Status: Chronic Current Visit: Yes (6) Hyperlipidemia, unspecified Status: Chronic Current Visit: Yes (7) History of cardiac dysrhythmia Status: Chronic Current Visit: Yes (8) GERD without esophagitis Status: Chronic Current Visit: Yes
[2016-10-23] MEDS: FUROSEMIDE 40 MG/4 ML VIAL IV SCH ×2 (09:33→12:30)
[2016-10-23] MEDS: DOCUSATE SODIUM 100 MG CAPSULE PO SCH ×2 (09:34→20:55)
[2016-10-23] MEDS: INSULIN REGULAR 100 UNIT/ML SUBCUT SCH ×4 (09:34→21:03)
--- NOTE | 2016-10-23 10:39 | Pulmonology Progress Note ---
Pulmonary - PN: Subj Interval history: This is a 71-year-old white male with myasthenia gravis. I saw him in pulmonary consultation on 10/20/2016. He was having some shortness of breath. He now feels like he is fine. Diuresis helped him but he thinks as he is being treated for his exacerbation of myasthenia gravis that his diaphragmatic muscles are better and this is why he is breathing well.. My initial impressions were. #1. History of COPD. 2. Gastroesophageal reflux disease with a history of esophagitis #3 Positional shortness of breath which is improved with diuresis. BNP is normal and chest x-ray shows no evidence of congestive heart failure. Hopefully this will resolve his shortness of breath. Watch for microaspiration as a potential exacerbating factor. 4. Recent exacerbation of myasthenia gravis 5. Diabetes mellitus under good control 6. recent dehydration secondary to inability to swallow. Apparently resolved 7. See past history 10/23/2016. Patient's markedly improved his chest is clear he has been able to get up and move around. His chest x-ray is stable. He has a pulmonary nodule in the right which been present on a long-term basis. He is followed in [place] by pulmonology. His labs been reviewed and is labs been reviewed. Physical exam. General. No distress Vital signs normal. Psychiatric oriented 3 able to converse well and is fairly good historian Neck is symmetrical with no meningismus Face is symmetrical no edema of the tongue or lips Chest is 100% wheeze free Heart no gallop abdomen nondistended bowel sounds positive Extremities trace of chronic lower extremity edema Neurological is stable The remainder the exam is noncontributory Plan. 10/20/2006 1. I agree with nebulizers. 2. I reviewed the patient's other medicines and I am in total agreement with these have made no changes. 3. We will check a sputum for Gram stain culture and sensitivity. 4. We will get a follow-up chest x-ray on Sunday and Sunday. 10/23/2016. 1. This patient is doing well. His pulmonary status is stable. 2. See today's note, above 3. I will sign off. Reconsult as needed Exam (Progress Note) - Constitutional Vitals: Period Temp Pulse Resp BP Sys/Gonzales Pulse Ox Last 24 Hr 97.3 F-98.4 F 54-87 16-20 154-166/75-92 92-99 Results - Labs CBC & BMP: 10/19/16 05:14 10/23/16 06:02
--- NOTE | 2016-10-23 12:18 | Neurology Progress Note ---
Neurology - PN : Subjective Interval history: Patient seems to be doing better. Today is day for of IVIG. Swallowing is much better and eating better. Breathing is fine. Exam (Progress Note) - Constitutional Vitals: Period Temp Pulse Resp BP Sys/Gonzales Pulse Ox Last 24 Hr 97.3 F-98.4 F 54-87 16-20 154-166/75-92 93-99 Exam: GENERAL: Patient is in no acute distress. NECK: Neck is supple. There is no JVD. No carotid bruits present. No thyroid masses. CVS: First and second heart sounds are normal. There is no S3 present. Regular rate and rhythm. RESPIRATORY: Lungs are clear to auscultation without any rales or rhonchi. ABDOMEN: Soft and non-tender. Bowel sounds are present. There is no hepatosplenomegaly. EXT: There is no palpable edema. Peripheral pulses are present. Skin: No rashes Central Nervous system: General: Alert, awake and Oriented x 3 Speech: Fluent Comprehension: Intact and normal Facial expressions: Normal Cranial Nerves: CN1/Olfactory: Normal CN II/ Optic: Normal, Visual Bynum unreliable CN III, and : DANIEL & EOMI, bilateral ptosis CN V: Normal & intact CN VII: face is symmetric CNVIII: Normal CN XI/X/XI/XII: Intact and Normal Motor: Bulk and Tone is normal. Strength in the right 4/5 Strength in the left 4/5 Sensory: Grossly intact for all the modalities of PP, LT and temp sense Reflexes: 1+ and symmetrical Cerebellar function: Normal finger to nose and heel to burger testing. Toes: Equivocal Gait: Able to get up and walk Results - Labs CBC & BMP: 10/19/16 05:14 10/23/16 06:02 Assessment and Plan (1) Myasthenia gravis with exacerbation Status: Acute Assessment and plan: Continue IV Solu-Medrol to 62.5 mg every 8 Continue IVIG 40 g daily. Tomorrow will be the last day Continue 02 via nasal cannula 2 L/min Stop tube feedings and DC feeding tube We will reevaluate tomorrow. Hopefully he will go home by Sunday Current Visit: Yes (2) Type 2 diabetes mellitus with unspecified complications Status: Chronic Assessment and plan: Continue Accu-Cheks with sliding scale coverage Current Visit: Yes (3) Hypertension, essential Status: Chronic Assessment and plan: Continue current medications. Check vitals per routine. Current Visit: Yes
[2016-10-23] MEDS: IMMUNE GLOBULIN 10% 40 GM in PREMIX 1 EACH IV SCH (12:42)
[2016-10-23] MEDS: ENOXAPARIN 40 MG/0.4 ML SYRINGE SUBCUT SCH (15:15)
[2016-10-23] MEDS: LISINOPRIL 20 MG TABLET PO SCH (20:55)
[2016-10-24] MEDS: methylPREDNISolone SOD SUC 125 MG/2 ML VIAL IV SCH ×2 (02:48→09:38)
[2016-10-24] MEDS: ALBUTEROL/IPRATROPIUM 3 ML NEB RESP TX SCH ×6 (04:00→23:16)
[2016-10-24] MEDS: LEVOTHYROXINE 200 MCG TABLET PO SCH (06:27)
[2016-10-24] MEDS: INSULIN REGULAR 100 UNIT/ML SUBCUT SCH ×4 (07:40→21:00)
[2016-10-24] MEDS: LISINOPRIL 20 MG TABLET PO SCH ×2 (09:39→21:48)
[2016-10-24] MEDS: hydroCHLOROthiazide 12.5 MG CAPSULE PO SCH (09:39)
[2016-10-24] MEDS: DOCUSATE SODIUM 100 MG CAPSULE PO SCH ×2 (09:39→21:48)
[2016-10-24] MEDS: FUROSEMIDE 20 MG TABLET PO SCH (09:39)
[2016-10-24] MEDS: PANTOPRAZOLE 40 MG TABLET PO SCH (09:40)
[2016-10-24] MEDS: IMMUNE GLOBULIN 10% 40 GM in PREMIX 1 EACH IV SCH (09:40)
--- NOTE | 2016-10-24 09:40 | Family Practice Progress Note ---
Family Practice - PN: Subj Interval history: pt admitted for Myasthenia Gravis Exacerbation, improving has h/o hypertension, diabeties, COPD,hyperlipidemia,hypothyroidism, PCP: Outside, consultants on case: Dr. Mcdowell, neurologist, [employer]. Patient seen and examined on the fifth floor, Is ambulating well. Patient had breakfast this AM, no difficulty swallowing, today's the last day for IVIG No fever, nausea,chest pain,SOB, new weakness noted by the patient, No overnight events reported by the nurse. Exam (Progress Note) - Constitutional Vitals: Period Temp Pulse Resp BP Sys/Gonzales Pulse Ox Last 24 Hr 96.3 F-98.0 F 46-85 14-20 143-159/72-87 91-100 Exam: GENERAL APPEARANCE: alert and oriented, pleasant, in no acute distress,elderly male patient, HEENT: normal . EYES:extraocular movement intact (EOMI), conjunctiva clear,. NECK/THYROID: neck supple, full range of motion, \, no thyromegaly . HEART: regular rate and rhythm, no murmurs, rubs, gallops . LUNGS: clear to auscultation bilaterally, no wheezes, rales, rhonchi . ABDOMEN: soft, nontender, nondistended, no organomegaly , bowel sounds present . EXTREMITIES: no pedal edema NEUROLOGIC: alert and oriented, cranial nerves 2-12 grossly intact, gait normal , normal strength, speech clear. Results - Labs CBC & BMP: 10/19/16 05:14 10/23/16 06:02 Lab Results: I have reviewed the past 24 hour labs Assessment and Plan (1) Myasthenia gravis with exacerbation Status: Acute Assessment and plan: Improving On IV Solu-Medrol IVIG day 5 today, Follow neurology recommendations, has appt made with PCP in [place], has [facility] [employer] in [facility], [place] has appointment on 11/16/2016 in [place], [place] 2. on diet, on home oral meds , tolerated well 3. continue speech/swallow therapist recommendation 4. Hypertension, stable , continue antihypertensives. 5. Diabetes, stable on sliding scale. 6. COPD ,continue duo nebs, oxygen. 7. Hypothyroidism on Synthroid. Possible discharge tomorrow AM. Current Visit: Yes (2) Type 2 diabetes mellitus with unspecified complications Status: Chronic Current Visit: Yes (3) Hypertension, essential Status: Chronic Current Visit: Yes (4) Hypothyroidism, unspecified Status: Chronic Current Visit: Yes (5) COPD (chronic obstructive pulmonary disease) Status: Chronic Current Visit: Yes (6) Hyperlipidemia, unspecified Status: Chronic Current Visit: Yes (7) History of cardiac dysrhythmia Status: Chronic Current Visit: Yes (8) GERD without esophagitis Status: Chronic Current Visit: Yes
--- NOTE | 2016-10-24 10:53 | Discharge Summary ---
Hospital Course - Hospital Course Hospital Course: [place] , Mr. Iniguez is a 71 year old male pt came to see , neurologist clinic, found to have Myasthenia Gravis acute Exacerbation, h/o Myasthenia Gravis for last 7-8 years,was found to have significant ptosis bilaterally, marked difficulty with the speech and he could not swallow anything, including saliva for past 24 hours. his home oral steroids were not helping him. no chest pain , sob , headaches, dizziness, nausea or vomiting noted. Was admitted to the hospital for further management, pt also has h/o , hypertension, diabeties, COPD,hyperlipidemia,hypothyroidism, Started on IV solumedrol, was kept NPO and IVF started , and IV meds instead of home meds were done, Speech therapist consulted ,routine labs done, IV solumedrol adjusted and IVIG initiated for X 5 days starting on 10/20/16, as per neurologist recommendations, On 10/19/16 , noticed to developed SOB, for which IV Lasix ordered, and IVF reduced, PULMONOLOGY was consulted, Cardiac workup was WNL , as well as Chest x ray were done,( see results) pt improved with SOB,the next consecutive day, Tube feeding was started and IVF discontinued , pt improved with speech and swallowing gradually,during the hospital stay,oral diet was introduced around 10/22/16, was advanced as tolerated, Tube feeding discontinued and home oral meds started on 10/23/16, For DM, sliding scale along with fingerstick QAc/hs were done, pt tolerated IVIg well, his speech, swallowing capacity was almost regained to normal by the time of discharge, A copy of the discharge summary, handed over to the pt, Pt has appt made with PCP in [place], has 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 in [employer] appt in [facility], [place] has appointment on 11/16/2016 in [place], [place] Diagnosis - Discharge Diagnosis (1) Myasthenia gravis Status: Chronic (2) Myasthenia gravis with exacerbation Status: Resolved (3) Type 2 diabetes mellitus with unspecified complications Status: Chronic (4) Hypertension, essential Status: Chronic (5) Hypothyroidism, unspecified Status: Chronic (6) COPD (chronic obstructive pulmonary disease) Status: Chronic (7) Hyperlipidemia, unspecified Status: Chronic (8) History of cardiac dysrhythmia Status: Chronic (9) GERD without esophagitis Status: Chronic Specialty Discharge - Follow Up or Referrals Follow up with: Willi Mcdowell MD [Physician] - (Keep appointment on 11/16/2016 in [place], [place]) - Speciality Discharge Instructions Internal Medicine Instructions: keep PCP appt , with ,[place], [place]. Discharge Plan - Discharge Data Disposition: Disch To Home/Self Care Condition at Discharge: Stable Discharge Diet: advance to your usual diet, diabetic diet, low salt diet Activity: resume usual activities as tolerated - Discharge Medications New predniSONE TAB [PredniSONE] 30 mg PO BID #120 tablet Continue Lisinopril 40 mg PO BID Tiotropium Inhalation [Spiriva Handihaler] 18 mcg INH DAILY Fluticasone Propionate [Flonase Allergy Relief] 1 spray BOTH NARES DAILY Fluticasone/Salmeterol [Advair Hfa 115-21 Mcg Inhaler] 8 gm IH BID Pyridostigmine [place] 1 tablet PO TID raNITIdine HCl [Ranitidine HCl] 150 mg PO DAILY hydroCHLOROthiazide [Hydrochlorothiazide] 25 mg PO DAILY Pantoprazole Tab [Protonix Tab] 40 mg PO DAILY Multivitamin (Centrum) [Centrum Tab] 1 tablet PO DAILY Gluc/Radhames-MSM#1/C/Osman/Trent/Bor [Osteo Bi-Flex Caplet] 2 each PO DAILY Ibuprofen [Advil] 200 mg PO Q6HR PRN PRN Reason: Pain metFORMIN [Glucophage] 500 mg PO BID W/MEALS Montelukast Tab [Singulair Tab] 10 mg PO DAILY Levothyroxine Tab [Synthroid Tab] 200 mcg PO DAILY@0700 Clopidogrel [Plavix] 75 mg PO DAILY Alfuzosin [Uroxatral] 10 mg PO DAILY Fenofibrate 160 mg PO DAILY Melatonin 3 mg PO BEDTIME Furosemide 20 mg PO DAILY Levocetirizine Dihydrochloride 5 mg PO BEDTIME Discontinued predniSONE [Prednisone] 5 mg PO DAILY - Follow Up or Referral Follow Up: Willi Mcdowell MD [Physician] - (Keep appointment on 11/16/2016 in [place], [place]) - Forms/Instructions Instructions: Myasthenia Gravis (DC), Hypertension (DC) Exam - Constitutional Vitals: Period Temp Pulse Resp BP Sys/Gonzales Pulse Ox Last 24 Hr 96.3 F-98.0 F 46-85 14-20 143-159/72-87 91-100 Exam: GENERAL APPEARANCE: alert and oriented, pleasant, in no acute distress,elderly male patient, sitting up in the bed HEENT: normal . EYES:extraocular movement intact (EOMI), conjunctiva clear,. NECK/THYROID: neck supple, full range of motion, \, no thyromegaly . HEART: regular rate and rhythm, no murmurs, rubs, gallops . LUNGS: clear to auscultation bilaterally, no wheezes, rales, rhonchi . ABDOMEN: soft, nontender, nondistended, no organomegaly , bowel sounds present . EXTREMITIES: no pedal edema NEUROLOGIC: alert and oriented, cranial nerves 2-12 grossly intact, gait normal , normal strength, speech clear. Discharge Results Procedures and tests throughout hospitalization: Pending Orders 10/26/16 04:00 Basic Metabolic Panel MOTH Magnesium MOTH Phosphorous MOTH Labs on day of discharge: Labs from last 24 hours 10/24/16 10/23/16 10/23/16 07:04 20:54 16:37 POC Glucose 124 H 156 H 156 H 10/23/16 11:23 POC Glucose 149 H - Impressions Urine culture from 10/18/2016, no growth for 48 hours, sputum culture from 10/21/2016, no growth for 48 hours. Chest x-ray,10/20/16 Impression: COPD with evidence of granulomatous disease. 10 mm nodular density in the right upper lobe which contains equivocal minimal central calcification. CT is recommended for further evaluation. Atelectasis at the lung bases. (Patient is aware of the nodule, patient mentions his PCP follows chest x-ray regularly, previously it was noted to be 1.3 cm) Chest Xray, 10/23/16 Impression: 1. Stable appearance of the lung craft, with the pulmonary nodule in the right midlung field which needs further evaluation with CT. 2. The Keofeed tube has been retracted. It needs to be advanced several centimeters. EKG, 10/20/16 Interpretive Statements SINUS RHYTHM WITH FREQUENT SUPRAVENTRICULAR PREMATURE COMPLEXES ABNORMAL RHYTHM ECG 10/18/2016, TSH 2.65, T4 0.99 10/19/16, Hemoglobin A1c of 6. Triglyceride 93, total cholesterol 172, LDL 105, HDL 56, VLDL 18 CBC, with H&H 13.2/40.3. Platelets 365, WBC 12.5 mildly high, possibly because of steroids 10/21/2016, renal function tests normal LFTs from 10/18/2016, total bilirubin 1.1, direct bilirubin 0.3, indirect bilirubin 0.8,AST 32, ALT 33, alkaline phosphatase 54 total protein 7.6 albumin 4.3, globin 3.2 DS: Provider Date of admission: 10/18/16 12:58 Primary care physician: . No PCP AT [place] Attending physician on admission: Maximus Gary MD Consults: 10/18/16 12:58 Consult to Case Mgmt/Social Srvs [CONS] Routine Reason for Case Mgmt/Social Srvs: Discharge Planning 10/18/16 16:48 Consult to Physician [CONS] Routine Comment: myasthenia gravis with exacerbation Consulting Provider: Willi Mcdowell Consult Notification Comment: Dr. Mcdowell on floor, made aware 10/20/16 08:30 Consult to Physician [CONS] Routine Comment: Consulting Provider: Jay Jay Catherine Person Notified: OLGA Date Notified: 10/20/16 Time Notified: 10:31 10/20/16 08:32 Consult to Dietitian [CONS] Routine Reason for Dietitian: TF-Initiate/Manage Discharging clinician: Maximus Gary MD
[2016-10-24] MEDS: ENOXAPARIN 40 MG/0.4 ML SYRINGE SUBCUT SCH (13:24)
--- NOTE | 2016-10-24 14:56 | Neurology Progress Note ---
Neurology - PN : Subjective Interval history: Patient seems to be doing much better. He is almost back to his normal self. Swallowing good and breathing is fine. Walking fine. Energy level is back to normal Exam (Progress Note) - Constitutional Vitals: Period Temp Pulse Resp BP Sys/Gonzales Pulse Ox Last 24 Hr 96.3 F-98.0 F 46-85 14-20 143-159/72-87 91-100 Exam: GENERAL: Patient is in no acute distress. NECK: Neck is supple. There is no JVD. No carotid bruits present. No thyroid masses. CVS: First and second heart sounds are normal. There is no S3 present. Regular rate and rhythm. RESPIRATORY: Lungs are clear to auscultation without any rales or rhonchi. ABDOMEN: Soft and non-tender. Bowel sounds are present. There is no hepatosplenomegaly. EXT: There is no palpable edema. Peripheral pulses are present. Skin: No rashes Central Nervous system: General: Alert, awake and Oriented x 3 Speech: Fluent Comprehension: Intact and normal Facial expressions: Normal Cranial Nerves: CN1/Olfactory: Normal CN II/ Optic: Normal, Visual Bynum unreliable CN III, and : DANIEL & EOMI, no ptosis at all CN V: Normal & intact CN VII: face is symmetric CNVIII: Normal CN XI/X/XI/XII: Intact and Normal Motor: Bulk and Tone is normal. Strength in the right 4/5 Strength in the left 4/5 Sensory: Grossly intact for all the modalities of PP, LT and temp sense Reflexes: 1+ and symmetrical Cerebellar function: Normal finger to nose and heel to burger testing. Toes: Equivocal Gait: Able to get up and walk Results - Labs CBC & BMP: 10/19/16 05:14 10/23/16 06:02 Assessment and Plan (1) Myasthenia gravis with exacerbation Status: Resolved Assessment and plan: Stop Solu-Medrol Start prednisone 30 mg p.o. twice daily Start Mestinon 60 mg 3 times daily Protonix 40 mg daily Okay to go home in the morning Current Visit: Yes (2) Type 2 diabetes mellitus with unspecified complications Status: Chronic Assessment and plan: Continue Accu-Cheks with sliding scale coverage Current Visit: Yes (3) Hypertension, essential Status: Chronic Assessment and plan: Continue current medications. Check vitals per routine. Current Visit: Yes Specialty Discharge - Follow Up or Referrals Follow up with: Willi Mcdowell MD [Physician] - (Keep appointment on 11/16/2016 in [place], [place])
[2016-10-24] MEDS: PYRIDOSTIGMINE 60 MG TABLET PO SCH ×2 (16:25→21:49)
[2016-10-24] MEDS: predniSONE 10 MG TABLET PO SCH (21:48)
[2016-10-25] MEDS: ALBUTEROL/IPRATROPIUM 3 ML NEB RESP TX SCH ×2 (03:21→07:47)
[2016-10-25] MEDS: LEVOTHYROXINE 200 MCG TABLET PO SCH (07:10)
[2016-10-25 07:50] VITALS: BP 139/83
[2016-10-25] MEDS: predniSONE 10 MG TABLET PO SCH (08:50)
[2016-10-25] MEDS: DOCUSATE SODIUM 100 MG CAPSULE PO SCH (08:50)
[2016-10-25] MEDS: LISINOPRIL 20 MG TABLET PO SCH (08:51)
[2016-10-25] MEDS: FUROSEMIDE 20 MG TABLET PO SCH (08:51)
[2016-10-25] MEDS: PANTOPRAZOLE 40 MG TABLET PO SCH (08:51)
[2016-10-25] MEDS: PYRIDOSTIGMINE 60 MG TABLET PO SCH (08:51)
[2016-10-25] MEDS: INSULIN REGULAR 100 UNIT/ML SUBCUT SCH (08:51)
[2016-10-25] MEDS: hydroCHLOROthiazide 12.5 MG CAPSULE PO SCH (08:51)
== END 2016-10-25 10:05 | disposition home or self-care (01) | DRG 57 ==
LOC: N.5E 13:08
PROVIDERS: ADMIT Family Medicine; ATTEND Family Medicine